=== PATIENT | female | born 1995 | race Caucasian/White ===

== ENCOUNTER 2016-10-21 00:58 | Emergency (ER) | payer OTHER ==
[2016-10-21] MEDS ORDERED: ACETAMINOPHEN 325 MG TABLET PO ONE (01:24)
[2016-10-21] MEDS ORDERED: OXYCODONE HCL IR 5 MG TABLET PO ONE (01:24)
[2016-10-21] MEDS ORDERED: LIDOCAINE 4%/TETRACAINE 0.5%/EPI 0.18% 5 ML TOPICAL SOLN TOP ONE (01:25)
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
[2016-10-21] MEDS ORDERED: HYDROCODONE/ACETAMINOPHEN 5-325 MG 6 TAB/DSPK PO PRN (03:08)
[2016-10-21] MEDS ORDERED: AMOXICILLIN TR/POT CLAVULANATE 500-125 MG TAB PO ONE (03:11)
[2016-10-21] MEDS ORDERED: IPRATROPIUM/ALBUTEROL 0.5-2.5 MG/3 ML AMPUL NEB ONE (03:19)
[2016-10-21 03:56] VITALS: BP 103/89
== END 2016-10-21 03:58 | disposition home or self-care (01) ==
LOC: ER 00:58
DX: S09.90XA Unspecified injury of head, initial encounter (principal); S03.2XXA Dislocation of tooth, initial encounter; S30.811A Abrasion of abdominal wall, initial encounter; S00.511A Abrasion of lip, initial encounter; S00.81XA Abrasion of other part of head, initial encounter; V47.5XXA Car driver injured in collision with fixed or stationary object in traffic accident, initial encounter; Y92.410 Unspecified street and highway as the place of occurrence of the external cause
CPT/HCPCS: 94640; 99284; 73130; 70110; J3490; J7620

== ENCOUNTER 2017-07-28 01:08 | Emergency (ER) | payer BC, OTHER ==
[2017-07-28] MEDS ORDERED: NALOXONE HCL INJ/PF 0.4 MG/1 ML SDV IV ONE (01:24)
[2017-07-28] MEDS ORDERED: ONDANSETRON HCL INJ/PF 4 MG/2 ML SDV IV ONE (01:25)
[2017-07-28] MEDS ORDERED: NORMAL SALINE 1000 ML 1,000 ML IV ONE (01:25)
--- NOTE | 2017-07-28 01:39 | RADIOLOGY REPORT (SQ) ---
EXAM DESCRIPTION: Single view of the chest CLINICAL HISTORY: apnea COMPARISON: None. FINDINGS: Single frontal view of the chest. The cardiomediastinal silhouette has normal size and contour. No consolidation, pneumothorax, or pleural effusion. No displaced rib fractures identified. Upper abdominal soft tissues are unremarkable. Leads overlie the chest. Bilateral piercings identified. IMPRESSION: 1. No acute pulmonary process identified.
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
[2017-07-28 03:34] VITALS: BP 109/86
--- NOTE | 2017-07-28 20:43 | EKG REPORT ---
SEVERITY:- OTHERWISE NORMAL ECG - SINUS TACHYCARDIA : Confirmed by: Nancy Kelsey 28-Jul-2017 17:42:29
== END 2017-07-28 02:23 | disposition home or self-care (01) ==
LOC: ER 01:08
DX: T40.1X1A Poisoning by heroin, accidental (unintentional), initial encounter (principal); Y92.810 Car as the place of occurrence of the external cause; F17.200 Nicotine dependence, unspecified, uncomplicated; R11.10 Vomiting, unspecified
CPT/HCPCS: 93005; 99284; 96361; 96374; 96375; 71045; 93010; J2310; J2405; J7030

== ENCOUNTER 2018-04-10 03:10 | Emergency (ER) | payer BC, OTHER ==
--- NOTE | 2018-04-10 03:38 | ER Document Report ---
ED Substance Abuse / Acc. OD - General Chief Complaint: Possible Overdose Stated Complaint: POSSIBLE OVERDOSE Time Seen by Provider: 04/10/18 03:38 Mode of Arrival: Stretcher Information source: Patient, Emergency Med Personnel Notes: HISTORY OF PRESENT ILLNESS: Patient is a 22-year-old female with a past medical history of substance abuse who presents with accidental overdose of heroin. Patient reports last doing heroin 2 months ago when she last overdosed accidentally, has not used until prior to this encounter, reports using "one bag" but she snorted and then is unsure what happened until she awoke with EMS. Currently she has no complaints. Location: Global Onset: Sudden Provocation: "Starting one bag of heroin Quality: Was given Narcan by EMS after she was found to be in significant distress Radiation: None Severity: Initially severe, now mild and improving Timing: Improving Suicidal thoughts: None Hallucinations: None REVIEW OF SYSTEMS: CONSTITUTIONAL : Denies fever or chills, no sweats. Denies recent illness. EENT: Denies eye, ear, throat, or mouth pain or symptoms. Denies nasal or sinus congestion. CARDIOVASCULAR: Denies chest pain. RESPIRATORY: Denies cough, cold, or chest congestion. Denies shortness of breath, difficulty breathing, or wheezing. GASTROINTESTINAL: Denies abdominal pain. Denies nausea, vomiting, or diarrhea. Denies constipation. GENITOURINARY: Denies difficulty urinating, painful urination, burning, frequency, or blood in urine. FEMALE GENITOURINARY: Denies vaginal bleeding, abnormal or irregular periods. MUSCULOSKELETAL: Denies neck or back pain or joint pain or swelling. SKIN: Denies rash or skin lesions. HEMATOLOGIC : Denies easy bruising or bleeding. LYMPHATIC: Denies swollen, enlarged glands. NEUROLOGICAL: Denies altered mental status or loss of consciousness. Denies headache. Denies weakness or paralysis or loss of use of either side. Denies problems with gait or speech. Denies sensory or motor loss. PSYCHIATRIC: Positive drug abuse. Denies suicidal or homicidal ideations. Denies hallucinations. Denies anxiety or stress or depression. All other systems reviewed and negative. PHYSICAL EXAMINATION: GENERAL: Well-appearing, well-nourished and in no acute distress. HEAD: Atraumatic, normocephalic. No scalp deformity, depression, or crepitance. EYES: Pupils are 3 mm and equal/round/reactive to light, extraocular movements intact, sclera anicteric, conjunctiva are normal. ENT: Nares patent bilaterally, oropharynx clear without exudates or palatal petechia. Moist mucous membranes. No tonsil hypertrophy. NECK: Normal range of motion, supple without lymphadenopathy. LUNGS: Breath sounds present, equal, and clear to auscultation bilaterally. No wheezes, rales, or rhonchi. HEART: Regular rate and rhythm without murmurs, rubs, or gallops. 2+ peripheral pulses. Normal capillary refill. ABDOMEN: Soft, nontender, nondistended. Normoactive bowel sounds. No guarding, no rebound. No masses appreciated. BACK: Normal contour, no midline tenderness. Rectal exam deferred. PELVC: Deferred. EXTREMITIES: Normal range of motion, no pitting or edema. No cyanosis. NEUROLOGICAL: No focal neurological deficits. Moves all extremities spontaneously and on command. PSYCH: Normal mood, normal affect. No suicidal thoughts/ideations. No homocidal thoughts/ideations. No hallucinations. SKIN: Warm, dry, normal turgor, no rashes or lesions noted. ASSESSMENT AND PLAN: This patient is a 22-year-old female who presents with accidental overdose after being given Narcan by EMS. Currently the patient has no symptoms and is insistent that this was an accident, exam is consistent with this. 1. Will medically clear and observe for recurrence of symptoms. 2. Anticipate likely discharge home if medical clearance is appropriate and patient is symptom-free without recurrence. TRAVEL OUTSIDE OF THE [place] IN LAST 30 DAYS: No - Related Data Allergies/Adverse Reactions: No Known Allergies Allergy (Unverified 10/21/16 01:05) Past Medical History - General Information source: Patient - Social History Smoking Status: Current Some Day Smoker Chew tobacco use (# tins/day): No Frequency of alcohol use: None Drug Abuse: None Lives with: Family Family History: Reviewed & Not Pertinent - Past Medical History Cardiac Medical History: Reports: None Pulmonary Medical History: Reports: None EENT Medical History: Reports: None Neurological Medical History: Reports: None Endocrine Medical History: Reports: None Renal/ Medical History: Reports: None. Denies: Hx Peritoneal Dialysis Malignancy Medical History: Reports: None GI Medical History: Reports: None Musculoskeletal Medical History: Reports None Skin Medical History: Reports None Psychiatric Medical History: Reports: None Traumatic Medical History: Reports: None Infectious Medical History: Reports: None Surgical Hx: Negative Past Surgical History: Reports: None - Immunizations Immunizations up to date: Yes Hx Diphtheria, Pertussis, Tetanus Vaccination: No Physical Exam - Vital signs Vitals: Temp Pulse Resp BP Pulse Ox 97.9 F 108 H 18 115/65 100 04/10/18 03:10 04/10/18 03:10 04/10/18 03:10 04/10/18 03:10 04/10/18 03:10 Course - Re-evaluation Re-evalutation: 04/10/18 06:18 Labs are unremarkable. Patient has been resting comfortably without recurrent issues of difficulty breathing or other respiratory complaints. She will be discharged home with return precautions and follow-up as needed. The patient voices both understanding and agreeing with the plan. - Vital Signs Vital signs: Temp Pulse Resp BP Pulse Ox 97.9 F 108 H 13 115/65 100 04/10/18 03:10 04/10/18 03:10 04/10/18 03:21 04/10/18 03:21 04/10/18 03:21 - Laboratory Result Diagrams: 04/10/18 03:21 04/10/18 03:21 Laboratory results interpreted by me: 04/10/18 04/10/18 03:21 03:21 Monocytes % 2.4 L Potassium 5.2 H Glucose 232 H Salicylates < 1.0 L Acetaminophen < 10 L - EKG Interpretation by Ca EKG shows normal: Sinus rhythm Rate: Normal Rhythm: NSR Middle Bass/QRS: No: Right axis deviation, Left axis deviation, RBBB, LBBB, IVCD, LAHB/LAFB, LPHB/LPFB, Bifasicular block Voltage: No: Increased voltage, Consistant with LVH, Decreased voltage, T hroughout, Limb leads P Waves: No: EAMON, LAE, Absent, AV Dissociation, Other Heart block present: No: 1st Degree, Mobitz 1, Mobitz 2, CHB (3rd degree block) When compared to previous EKG there are: No significant change Discharge - Discharge Clinical Impression: Accidental drug overdose Qualifiers: Encounter type: initial encounter Qualified Code(s): T50.901A - Poisoning by unspecified drugs, medicaments and biological substances, accidental (unintentional), initial encounter Condition: Good Disposition: HOME, SELF-CARE Instructions: Narcotic Abuse ([facility]) Additional Instructions: You have been evaluated in the Emergency Department for an accidental overdose on heroin. EMS gave you a medication called Narcan that counteracted this, and they also gave you a kit that she may take home with you. Please follow-up with your [primary physician] as instructed in 1 week or as needed. Return to the [facility] if you experience difficulty breathing, chest pain, or any other concerning symptoms. Print Language: Kiswahili
[2018-04-10] MEDS ORDERED: NORMAL SALINE 1000 ML 1,000 ML IV ONE (04:16)
[2018-04-10] MEDS ORDERED: ONDANSETRON HCL INJ/PF 4 MG/2 ML SDV IV ONE (04:16)
[2018-04-10 04:38] LABS: ABSOLUTE BASOPHILS # (AUTO) 0.1 10^3/uL (0.0-0.2); ABSOLUTE EOSINOPHILS # (AUTO) 0.4 10^3/uL (0.0-0.6); ABSOLUTE LYMPHOCYTES (AUTO) 2.7 10^3/uL (0.5-4.7); ABSOLUTE MONOCYTES (AUTO) 0.2 10^3/uL (0.1-1.4); ABSOLUTE NEUT (AUTO) 4.6 10^3/uL (1.7-8.2); EOSINOPHILS % (AUTO) 5.1 % (0-6); HEMATOCRIT 36.8 % (36.0-47.0); HEMOGLOBIN 12.5 g/dL (12.0-15.5); LYMPHOCYTES % (AUTO) 33.6 % (13-45); MEAN CORPUSCULAR HEMOGLOBIN 30.1 pg (27.0-33.4); MEAN CORPUSCULAR HGB CONC 33.9 g/dL (32.0-36.0); MEAN CORPUSCULAR VOLUME 89 fl (80-97); MONOCYTES % (AUTO) 2.4 % (3-13); PLATELET COUNT 281 10^3/uL (150-450); RED BLOOD COUNT 4.16 10^6/uL (3.72-5.28); RED CELL DISTRIBUTION WIDTH 13.7 % (11.5-14.0); SEGMENTED NEUTROPHILS % (AUTO) 57.9 % (42-78); TOTAL CELLS COUNTED % (AUTO) 100 %
[2018-04-10 04:45] LABS: ALANINE AMINOTRANSFERASE 13 U/L (9-52); ALBUMIN 4.3 g/dL (3.5-5.0); ALKALINE PHOSPHATASE 53 U/L (38-126); ANION GAP 13 (5-19); ASPARTATE AMINO TRANSFERASE 18 U/L (14-36); BILIRUBIN,DIRECT 0.2 mg/dL (0.0-0.4); BILIRUBIN,TOTAL 0.3 mg/dL (0.2-1.3); BLOOD UREA NITROGEN 15 mg/dL (7-20); CALCIUM 8.6 mg/dL (8.4-10.2); CARBON DIOXIDE 26 mmol/L (22-30); CHLORIDE 102 mmol/L (98-107); CREATINE KINASE 61 U/L (30-135); GLUCOSE 232 mg/dL (75-110); POTASSIUM 5.2 mmol/L (3.6-5.0); SODIUM 141.1 mmol/L (137-145); TOTAL PROTEIN 7.2 g/dL (6.3-8.2)
[2018-04-10 04:53] LABS: ACETAMINOPHEN < 10 ug/mL (10-30); ALCOHOL < 10 mg/dL (NONE DETECTED); SALICYLATE < 1.0 mg/dL (2.0-20.0)
[2018-04-10 06:37] VITALS: BP 108/62
== END 2018-04-10 06:37 | disposition home or self-care (01) ==
LOC: ER 03:10
DX: T40.1X1A Poisoning by heroin, accidental (unintentional), initial encounter (principal); F17.200 Nicotine dependence, unspecified, uncomplicated
CPT/HCPCS: 99284; 96361; 96374; 36415; 80307 ×3; 82550; 85025; 80053; 84484; J2405; J7030

== ENCOUNTER 2018-11-21 23:08 | Emergency (ER) | payer BC ==
--- NOTE | 2018-11-22 00:47 | ER Document Report ---
ED General - General Chief Complaint: Leg Pain Stated Complaint: LEFT LEG NUMB, TROUBLE HEARING Time Seen by Provider: 11/22/18 00:36 TRAVEL OUTSIDE OF THE [place] IN LAST 30 DAYS: No - HPI Notes: Patient is a 21-year-old female who presents emergency department for evaluation. She was at the house by herself. She states she had a syncopal episode. Her father came home and found her on the floor. She stated originally her ears were ringing, and she was having difficulty moving her left arm. She does not specifically remember passing out. She had some pain in her left leg when she tried to move it. The patient specifically denies any drug use. - Related Data Allergies/Adverse Reactions: No Known Allergies Allergy (Unverified 10/21/16 01:05) Past Medical History - General Information source: Patient, Parent - Social History Smoking Status: Current Some Day Smoker Family History: Reviewed & Not Pertinent Renal/ Medical History: Denies: Hx Peritoneal Dialysis - Immunizations Immunizations up to date: Yes Hx Diphtheria, Pertussis, Tetanus Vaccination: No Review of Systems - Review of Systems Constitutional: No symptoms reported EENT: No symptoms reported Cardiovascular: See HPI Respiratory: No symptoms reported Gastrointestinal: No symptoms reported Genitourinary: No symptoms reported Musculoskeletal: No symptoms reported Skin: No symptoms reported Neurological/Psychological: No symptoms reported Physical Exam - Vital signs Vitals: Temp Pulse Resp BP Pulse Ox 98.1 F 114 H 20 133/99 H 94 11/21/18 23:17 11/21/18 23:17 11/21/18 23:17 11/21/18 23:17 11/21/18 23:17 - Notes Notes: This is a 23-year-old frail-appearing female, appears her stated age in no acute distress. She is drowsy but arouses easily to verbal stimuli. GCS 14. Vital signs reviewed, please refer to chart. Head is normocephalic, atraumatic. Pu pils equal round, reactive to light. Neck is supple without meningismus. Heart is regular rate and rhythm. Lungs are clear to auscultation bilaterally. Abdomen is soft, nontender, normoactive bowel sounds throughout. Extremities without cyanosis, clubbing. Posterior calves are nontender. Peripheral pulses are equal. Skin is warm and dry. She has patches of erythema on the medial aspect of her right knee in the lateral aspect of her left, consistent with pressure sores. Patient is drowsy, oriented x3. Cranial nerves II - XII are grossly intact without focal neurological deficits. Strength is plus 5 out of 5 bilateral upper and lower extremities. Sensation is intact. Reflexes symm etrical. Intact [id number], rapid alternating movements, [id number]. Course - Re-evaluation Re-evalutation: 11/22/18 00:46 Patient presents emergency department for evaluation. She is drowsy, but arouses easily to verbal stimuli. She is tachycardic. I did review this patient's visit history. In fact she is been here multiple times for opiate overdose. That is my strongest suspicion is the etiology of her symptoms at this time. IV fluids, laboratory investigations ordered, will continue to monitor. 11/22/18 03:24 During the course of her stay patient did admit to nursing staff that she "snorted something." Her drug screen was positive for opiates. Her laboratory investigations did reveal acute kidney injury and hyperkalemia. This improved after IV fluids. I explained to the patient that she needs to consider abstention from drugs. I encouraged her to follow-up with primary care for recheck of laboratory investigations. She voiced understanding. Her urine does have large blood, but she is currently menstruating. No obvious other signs of infection. We will have her follow-up with primary care, she is to return to the ED with worsening or new concerning symptoms of any sort. - Vital Signs Vital signs: Temp Pulse Resp BP Pulse Ox 98.1 F 114 H 11 L 96/66 L 97 11/21/18 23:17 11/21/18 23:17 11/22/18 01:08 11/22/18 01:08 11/22/18 01:05 - Laboratory Result Diagrams: 11/22/18 00:03 11/22/18 02:15 Laboratory results interpreted by me: 11/22/18 11/22/18 11/22/18 00:03 00:03 02:15 WBC 27.4 H Seg Neuts % (Manual) 87 H Lymphocytes % (Manual) 5 L Abs Neuts (Manual) 23.8 H Abs Monocytes (Manual) 1.6 H Abs Basophils (Manual) 0.3 H Potassium 6.4 H* Chloride 110 H Carbon Dioxide 18 L BUN 27 H 26 H Creatinine 1.73 H 1.36 H Est GFR ( Amer) 45 L 59 L Est GFR (MDRD) Non-Af 37 L 49 L Glucose 113 H 118 H Calcium 7.3 L AST 132 H Urine Protein Urine Blood Salicylates < 1.0 L 11/22/18 02:30 WBC Seg Neuts % (Manual) Lymphocytes % (Manual) Abs Neuts (Manual) Abs Monocytes (Manual) Abs Basophils (Manual) Potassium Chloride Carbon Dioxide BUN Creatinine Est GFR ( Amer) Est GFR (MDRD) Non-Af Glucose Calcium AST Urine Protein 100 H Urine Blood LARGE H Salicylates - EKG Interpretation by Me Additional EKG results interpreted by me: 11/22/18 03:25 Sinus mechanism with a rate of 93 bpm. Normal axis and intervals, no acute ST changes concerning for ischemia or infarction. Discharge - Discharge Clinical Impression: Hyperkalemia, Unresponsive episode, Opiate abuse, episodic Condition: Stable Disposition: HOME, SELF-CARE Instructions: Kidney Function Abnormality ([facility]) Additional Instructions: Rest and stay well-hydrated. Your labs showed mildly abnormal kidney function and an elevated potassium. This improved with IV fluids, but you may need further evaluation. Follow-up with primary care next week. Return to the ED with worsening or new concerning symptoms of any sort.
[2018-11-22 00:51] LABS: HEMATOCRIT 44.4 % (36.0-47.0); HEMOGLOBIN 14.7 g/dL (12.0-15.5); MEAN CORPUSCULAR HGB CONC 33.1 g/dL (32.0-36.0); MEAN CORPUSCULAR VOLUME 90 fl (80-97); PLATELET COUNT 334 10^3/uL (150-450); RED BLOOD COUNT 4.91 10^6/uL (3.72-5.28); RED CELL DISTRIBUTION WIDTH 13.9 % (11.5-14.0); WHITE BLOOD COUNT 27.4 10^3/uL (4.0-10.5)
[2018-11-22 00:55] LABS: ALBUMIN 4.6 g/dL (3.5-5.0); ALKALINE PHOSPHATASE 75 U/L (38-126); ANION GAP 13 (5-19); ASPARTATE AMINO TRANSFERASE 132 U/L (14-36); BILIRUBIN,DIRECT 0.1 mg/dL (0.0-0.4); BILIRUBIN,TOTAL 0.3 mg/dL (0.2-1.3); BLOOD UREA NITROGEN 27 mg/dL (7-20); CALCIUM 8.9 mg/dL (8.4-10.2); CARBON DIOXIDE 24 mmol/L (22-30); CHLORIDE 103 mmol/L (98-107); GLUCOSE 113 mg/dL (75-110); TOTAL PROTEIN 7.8 g/dL (6.3-8.2)
[2018-11-22] MEDS: NORMAL SALINE 1000 ML 1,000 ML IV PRN ×2 (00:57→01:30)
[2018-11-22 01:03] LABS: ALCOHOL < 10 mg/dL (NONE DETECTED); POTASSIUM 6.4 mmol/L (3.6-5.0); SALICYLATE < 1.0 mg/dL (2.0-20.0)
[2018-11-22 01:19] LABS: ABSOLUTE LYMPHOCYTES# (MANUAL) 1.4 10^3/uL (0.5-4.7); ABSOLUTE MONOCYTES # (MANUAL) 1.6 10^3/uL (0.1-1.4); BASOPHILS % (MANUAL) 1 % (0-2); EOSINOPHILS % (MANUAL) 1 % (0-6); LYMPHOCYTES % (MANUAL) 5 % (13-45); MONOCYTES % (MANUAL) 6 % (3-13); SEGMENTED NEUTROPHILS % (MAN) 87 % (42-78); TOTAL CELLS COUNTED 100
[2018-11-22 01:26] LABS: PLATELET COMMENT ADEQUATE
[2018-11-22 02:48] LABS: ANION GAP 10 (5-19); BLOOD UREA NITROGEN 26 mg/dL (7-20); CALCIUM 7.3 mg/dL (8.4-10.2); CARBON DIOXIDE 18 mmol/L (22-30); CHLORIDE 110 mmol/L (98-107); GLUCOSE 118 mg/dL (75-110)
[2018-11-22 02:53] LABS: POTASSIUM 4.9 mmol/L (3.6-5.0)
[2018-11-22 03:08] LABS: APPEARANCE,URINE CLOUDY; BILIRUBIN,URINE NEGATIVE (NEGATIVE); GLUCOSE, URINE NEGATIVE (NEGATIVE); KETONES,URINE NEGATIVE (NEGATIVE); LEUKOCYTE ESTERASE,URINE NEGATIVE (NEGATIVE); NITRITE,URINE NEGATIVE (NEGATIVE); PROTEIN,URINE 100 mg/dL (NEGATIVE); URINE SPECIFIC GRAVITY 1.015; UROBILINOGEN,URINE NEGATIVE mg/dL (<2.0)
[2018-11-22 03:20] LABS: URINE AMPHETAMINES SCREEN NEGATIVE; URINE BARBITURATES SCREEN NEGATIVE; URINE BENZODIAZEPINES SCREEN NEGATIVE; URINE COCAINE SCREEN NEGATIVE; URINE MARIJUANA (THC) SCREEN NEGATIVE; URINE METHADONE SCREEN NEGATIVE; URINE PHENCYCLIDINE SCREEN NEGATIVE
[2018-11-22 03:21] LABS: ADD MANUAL MICROSCOPIC YES; COLOR,URINE YELLOW; RBC,URINE 50-100 /HPF
[2018-11-22 03:22] LABS: AMORPHOUS SEDIMENT,UR 2+; BACTERIA,URINE 3+ /HPF
[2018-11-22 04:20] VITALS: BP 99/73
--- NOTE | 2018-11-22 08:48 | EKG REPORT ---
SEVERITY:- NORMAL ECG - SINUS RHYTHM : Confirmed by: Gemini Silver MD 22-Nov-2018 08:47:17
== END 2018-11-22 04:20 | disposition home or self-care (01) ==
LOC: ER 23:08
DX: E87.5 Hyperkalemia (principal); R40.4 Transient alteration of awareness; F11.10 Opioid abuse, uncomplicated; M79.605 Pain in left leg; R00.0 Tachycardia, unspecified; F17.200 Nicotine dependence, unspecified, uncomplicated
CPT/HCPCS: 93005; 36415; 80307 ×3; 84703; 85025; 80053; 81001; 93010; J7030; 96360; 99283